=== PATIENT | female | born 1975 | race African-American/Black ===

== ENCOUNTER 2017-05-06 20:27 | Emergency (ER) | payer MEDICAID ==
[~2017-05-06] VITALS: Ht 167.6 cm; Wt 61.2 kg
[~2017-05-06 20:27] MED LIST: ALBUTEROL SULF8.5 GM INH; CLINDAMYCIN HC300 MG ORAL; IBUPROFEN600 MG ORAL; NKM; NORCO 5-325 TA1 EACH ORAL; TRAMADOL HCL50 MG ORAL
[2017-05-06] MEDS ORDERED: NKM (20:36)
[2017-05-06] MEDS ORDERED: ACETAMINOPHEN-1 EAC1 ORAL (21:04)
[2017-05-06] MEDS ORDERED: VENTOLIN HFA18 GM INH (21:04)
[2017-05-06] MEDS ORDERED: IBUPROFEN600 MG ORAL (21:04)
[2017-05-06 21:08] VITALS: BP 158/84
[2017-05-06] MEDS ORDERED: Albuterol ud Inhalation HHN ONE (21:15)
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
== END 2017-05-06 21:26 | disposition home or self-care (01) ==
LOC: EMR 21:26
DX: R07.89 Other chest pain (principal); M94.0 Chondrocostal junction syndrome [Tietze]; J20.9 Acute bronchitis, unspecified; I10 Essential (primary) hypertension
CPT/HCPCS: 81025; 94640; 94664; 99283

== ENCOUNTER 2017-06-27 19:12 | Emergency (ER) | payer MEDICAID ==
[~2017-06-27] VITALS: Ht 167.6 cm; Wt 67.6 kg
[~2017-06-27 19:12] MED LIST changes: +ACETAMINOPHEN-1 EAC1 ORAL; +VENTOLIN HFA18 GM INH
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
[2017-06-27] MEDS ORDERED: TYLENOL EXTRA500 MG ORAL (20:29)
[2017-06-27] MEDS ORDERED: GUAIFENESIN1200 MG PO (20:29)
[2017-06-27] MEDS ORDERED: PROMETHAZINE-C118 M1 ORAL (20:29)
[2017-06-27] MEDS ORDERED: ALBUTEROL SULF8.5 GM INH (20:41)
[2017-06-27 21:00] VITALS: BP 145/87
[2017-06-27 22:10] VITALS: BP 145/87
== END 2017-06-27 22:11 | disposition home or self-care (01) ==
LOC: EMR 21:55
DX: J06.9 Acute upper respiratory infection, unspecified (principal); I10 Essential (primary) hypertension
CPT/HCPCS: 99284

== ENCOUNTER 2017-07-16 13:50 | Emergency (ER) | payer MEDICAID ==
[~2017-07-16] VITALS: Ht 167.6 cm; Wt 68.0 kg
[~2017-07-16 13:50] MED LIST changes: +GUAIFENESIN1200 MG PO; +PROMETHAZINE-C118 M1 ORAL; +TYLENOL EXTRA500 MG ORAL
[2017-07-16 14:24] VITALS: BP 158/97
[2017-07-16] MEDS ORDERED: Norco 5mg/325mg tab ORAL ONE (14:45)
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
[2017-07-16] MEDS ORDERED: Bacitracin Oint UD TOPIC ONE (15:45)
[2017-07-16] MEDS ORDERED: NAPROXEN500 M2 ORAL (15:46)
[2017-07-16 16:12] VITALS: BP 167/105
--- NOTE | 2017-07-16 17:29 | Diagnostic Imaging Report ---
Indication: Pain Technique: XRAY Hand Complete R Comparison: None Findings: No evidence of acute fracture or dislocation. Anatomic alignment and joint spaces preserved. No radiopaque foreign body seen. Impression: No evidence of acute fracture or dislocation.
--- NOTE | 2017-07-16 17:31 | Diagnostic Imaging Report ---
Indication: Pain Technique: XRAY Hand Complete L Comparison: None; correlation made to concurrent right hand radiographs. Findings: No evidence of acute fracture or dislocation. Anatomic alignment and joint spaces preserved. No radiopaque foreign body seen. Impression: No evidence of acute fracture or dislocation.
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
== END 2017-07-16 16:12 | disposition home or self-care (01) ==
LOC: EMR 14:40
DX: S80.01XA Contusion of right knee, initial encounter (principal); S40.012A Contusion of left shoulder, initial encounter; S40.212A Abrasion of left shoulder, initial encounter; S63.616A Unspecified sprain of right little finger, initial encounter; Y04.2XXA Assault by strike against or bumped into by another person, initial encounter; Y92.9 Unspecified place or not applicable; I10 Essential (primary) hypertension
CPT/HCPCS: 99284